=== PATIENT | female | born 1955 | race Caucasian/White ===

== ENCOUNTER → 2017-09-28 | Outpatient (CLI) | payer OTHER ==
[~2017-09-28] MED LIST: ASPI-496 PO; ATOR10TA PO; CA C1TAB39 PO; VITA1TAB63 PO-COUM
== END | disposition home or self-care (01) ==
LOC: CFH 15:47
PROVIDERS: ATTEND Internal Medicine
DX: Z12.2 Encounter for screening for malignant neoplasm of respiratory organs (principal); I25.10 Atherosclerotic heart disease of native coronary artery without angina pectoris; N64.9 Disorder of breast, unspecified; F17.210 Nicotine dependence, cigarettes, uncomplicated
CPT/HCPCS: G0297

== ENCOUNTER 2018-04-23 18:25 | Emergency (ER) | payer SELFPAY ==
[~2018-04-23] VITALS: Ht 167.6 cm; Wt 75.2 kg
[2018-04-23 18:26] VITALS: BP 122/72
[2018-04-23] MEDS ORDERED: TRAZ50TA18 PO (18:46)
[2018-04-23 19:03] LABS: MICROSCOPIC INDICATED
[2018-04-23 19:04] LABS: CULTURE INDICATED? YES
== END 2018-04-23 19:29 | disposition home or self-care (01) ==
LOC: ED 19:15
DX: N39.0 Urinary tract infection, site not specified (principal); R31.9 Hematuria, unspecified; F17.200 Nicotine dependence, unspecified, uncomplicated
CPT/HCPCS: 81001; 87077; 87086; 87186; 99284

== ENCOUNTER → 2019-02-08 | Outpatient (CLI) | payer MEDICARE, OTHER ==
[~2019-02-08] MED LIST changes: +TRAZ50TA66 PO
== END | disposition home or self-care (01) ==
LOC: CFH 14:52
PROVIDERS: ATTEND Internal Medicine
DX: Z12.2 Encounter for screening for malignant neoplasm of respiratory organs (principal); F17.210 Nicotine dependence, cigarettes, uncomplicated
CPT/HCPCS: G0297

== ENCOUNTER 2021-02-11 07:34 | Outpatient (CLI) | payer MEDICARE, OTHER | END 2021-02-11 23:59 | disposition home or self-care (01) | LOC: RAD 07:34 | DX: Z12.2 Encounter for screening for malignant neoplasm of respiratory organs (principal); I65.21 Occlusion and stenosis of right carotid artery; Z87.891 Personal history of nicotine dependence | CPT/HCPCS: 71271; 93880 ==